=== PATIENT | male | born 1950 | race Caucasian/White ===

== ENCOUNTER 2016-11-30 08:33 | Emergency (ER) | payer MEDICARE ==
[2016-11-30 08:58] VITALS: BP 162/75
--- NOTE | 2016-11-30 09:12 | UC ---
Lower Extremity/Ankle HPI - HPI Summary HPI Summary: Right knee pain with ROM onset yesterday s/p going up stairs, knee"gave way" it now better compared to 5 hours ago. he had reduced ROM but it has completely returned this AM . no previous trauma or knee issues. using a cane to help balance [ End ] - History of Current Complaint Chief Complaint: UCLowerExtremity Stated Complaint: RIGHT KNEE INJURY Time Seen by Provider: 11/30/16 09:01 Hx Obtained From: Patient Onset/Duration: Sudden Onset Severity Initially: Moderate Severity Currently: Severe Aggravating Factor(s): Standing Alleviating Factor(s): Rest Able to Bear Weight: Yes - Risk Factors Gout Risk Factors: Age Over 40 DVT Risk Factors: Negative Septic Arthritis Risk Factor: Negative - Allergies/Home Medications Allergies/Adverse Reactions: Allergies Allergy/AdvReac Type Severity Reaction Status Date / Time No Known Allergies Allergy Verified 11/30/16 08:58 Home Medications: Home Medications Ibuprofen TAB* [Advil TAB*] 400 mg PO Q4H PRN 11/30/16 [History Confirmed ] PMH/Surg Hx/FS Hx/Imm Hx Previously Healthy: Yes Other Endocrine History: unknown - Surgical History Surgical History: Yes Surgery Procedure, Year, and Place: b/l hips with hardware,ages 14 and 44 years - Family History Known Family History: Positive: None - Social History Occupation: Retired Lives: With Family Alcohol Use: Occasionally Substance Use Type: None Smoking Status (MU): Never Smoked Tobacco Review of Systems Constitutional: Negative Skin: Negative Eyes: Negative ENT: Negative Respiratory: Negative Cardiovascular: Negative Gastrointestinal: Negative Genitourinary: Negative Motor: Negative Neurovascular: Negative Musculoskeletal: Arthralgia Neurological: Negative Psychological: Negative All Other Systems Reviewed And Are Negative: Yes Physical Exam Triage Information Reviewed: Yes Appearance: Well-Appearing, No Pain Distress, Well-Nourished Vital Signs: Initial Vital Signs Temp 97.8 F 11/30/16 08:43 Pulse 100 11/30/16 08:43 Resp 24 11/30/16 08:43 BP 162/75 11/30/16 08:43 Vital Signs Reviewed: Yes Eye Exam: Normal ENT Exam: Normal Neck: Positive: 1 Respiratory Exam: Normal Cardiovascular Exam: Normal Musculoskeletal Exam: Normal Musculoskeletal: Positive: Strength Intact, ROM Intact, No Edema, Other: - Neg Homans. No obvious deformity or effusion. Minimal tenderness to palpation posterior fossa in the center / PCL Neurological Exam: Normal Psychological Exam: Normal Skin Exam: Normal Lower Extremity Course/Dx - Course Course Of Treatment: Could be PCL strain. He feels no pain at this time. No effusion . No ballotment. FROM of the knee. No lateral or medial joint line pain to palpation. At this time no trauma. no redness . Monitor with RICE / analgesics and if not improved he will go to ortho and requested Dr Samaniego - Differential Dx/Diagnosis Differential Diagnosis/HQI/PQRI: Sprain, Strain Provider Diagnoses: Right knee pain Discharge - Discharge Plan Condition: Good Disposition: HOME Patient Education Materials: Knee Pain (ED), Hypertension (ED) Referrals: Pratibha Samaniego MD [Medical Doctor] - If Needed (Per your request for this physician) Additional Instructions: Please locate a primary care physician to further evaluate your blood pressure and preventative health care
== END 2016-11-30 09:20 | disposition home or self-care (01) ==
LOC: UCCORT 08:33
DX: M25.561 Pain in right knee (principal)
CPT/HCPCS: 99201; G0463

== ENCOUNTER 2019-01-13 13:48 | Emergency (ER) | payer MEDICARE, BC ==
[2019-01-13 14:30] VITALS: BP 160/74
[2019-01-13] MEDS ORDERED: Albuterol 2.5 MG/3 ML NEB.SOL* (0.083%) INH ONE (14:38)
[2019-01-13] MEDS ORDERED: predniSONE TAB* 20 MG PO ONE (14:38)
--- NOTE | 2019-01-13 14:38 | UC ---
General HPI - HPI Summary HPI Summary: pt is c/o a 3-4 day hx worsening cough, chest congestion, wheezing and ASIF. he denies cp. he denies hx copd and asthma. prior hx bronchitis and this feels similar. also notes R ear is muffled. - History of Current Complaint Chief Complaint: UCRespiratory Stated Complaint: CONGESTION Time Seen by Provider: 01/13/19 14:22 Pain Intensity: 0 - Allergy/Home Medications Allergies/Adverse Reactions: Allergies Allergy/AdvReac Type Severity Reaction Status Date / Time No Known Allergies Allergy Verified 01/13/19 14:15 Home Medications: Home Medications D-Methorphan/PE/Acetaminophen [Vicks Dayquil Liquicaps] 2 each PO Q12H PRN 01/13 [History Confirmed 01/13/19] Dm/Acetaminophen/Doxylamine [Vicks Nyquil Liquicaps] 1 each PO ONCE PRN [History Confirmed 01/13/19] PMH/Surg Hx/FS Hx/Imm Hx Previously Healthy: Yes - Surgical History Surgical History: Yes Surgery Procedure, Year, and Place: b/l hips with hardware,ages 14 and 44 years - Family History Known Family History: Positive: None - Social History Alcohol Use: Occasionally Substance Use Type: None Smoking Status (MU): Never Smoked Tobacco Review of Systems All Other Systems Reviewed And Are Negative: Yes Constitutional: Negative: Fever ENT: Negative: Sore Throat, Ear Ache, Sinus Congestion Respiratory: Positive: Shortness Of Breath, Cough Cardiovascular: Negative: Palpitations, Chest Pain Musculoskeletal: Negative: Edema Physical Exam Triage Information Reviewed: Yes Appearance: Well-Appearing Vital Signs: Initial Vital Signs Temp 97.8 F 01/13/19 14:18 Pulse 88 01/13/19 14:18 Resp 18 01/13/19 14:18 BP 160/74 01/13/19 14:18 Pulse Ox 97 01/13/19 14:18 Vital Signs Reviewed: Yes Eyes: Positive: Conjunctiva Clear ENT: Positive: Pharynx normal, TMs normal. Negative: Nasal congestion, Nasal drainage Neck: Positive: Supple, Nontender, No Lymphadenopathy Respiratory: Positive: No respiratory distress, Decreased breath sounds, Other: - bilateral crackles and wheezing R >L. Cardiovascular: Positive: RRR, No Murmur Abdomen Description: Positive: Nontender Musculoskeletal: Positive: ROM Intact, No Edema Neurological: Positive: Alert Psychological: Positive: Age Appropriate Behavior Skin Exam: Normal Diagnostics - Radiology No standard instances Radiology Interpretation Completed By: Radiologist - IMPRESSION: COPD WITH PATCHY RIGHT PERIHILAR CONSOLIDATION. RECOMMEND FOLLOW-UP UNTIL RESOLUTION TO EXCLUDE UNDERLYING PULMONARY PARENCHYMAL PATHOLOGY. Re-Evaluation - Re-Evaluation First Eval Re-Evaluation Time: 15:17 Change: Improved - much better areation, wheezes and crackles resolved Course/Dx - Differential Dx - Multi-Symptom Differential Diagnoses: Other - non toxic. not hypoxic. pneumonia on cxr. need for close f/u and recheck including BP stressed to pt. - Diagnoses Provider Diagnosis: Pneumonia, Elevated BP without diagnosis of hypertension Discharge - Sign-Out/Discharge Documenting (check all that apply): Patient Departure All imaging exams completed and their final reports reviewed: Yes - Discharge Plan Condition: Stable Disposition: HOME Prescriptions: Albuterol HFA INHALER* [Ventolin HFA Inhaler*] 2 puff INH Q6H #1 mdi DOXYcycline CAP(*) [DOXYcycline 100MG CAP(*)] 100 mg PO BID 10 Days #20 cap predniSONE [Prednisone 20 MG TAB] 40 mg PO DAILY 3 Days #6 tablet Patient Education Materials: Community Acquired Pneumonia (ED), Hypertension ( ED) Referrals: Anil Klein MD [Medical Doctor] - 4 Days Additional Instructions: GO TO THE ER FOR ANY WORSENING - Billing Disposition and Condition Condition: STABLE Disposition: Home
== END 2019-01-13 15:31 | disposition home or self-care (01) ==
LOC: UCCORT 13:48
DX: J18.9 Pneumonia, unspecified organism (principal); R03.0 Elevated blood-pressure reading, without diagnosis of hypertension
CPT/HCPCS: 71046; 99212; G0463; J7512

== ENCOUNTER 2019-04-05 08:48 | Emergency (ER) | payer MEDICARE, BC ==
[2019-04-05 09:05] VITALS: BP 143/74
--- NOTE | 2019-04-05 10:11 | UC ---
Respiratory Complaint HPI - HPI Summary HPI Summary: Pt presents with c/o cough, wheezing, and SOB X 1-2 weeks. pt was idagnosed with pneumonia in December 2018 and given doxycycline and is concerned that it is "back". Pt also has c/o of itchy rash on back and upper chest X 1-2 weeks. Pt states the rash first appeared on his back and is now on his upper chest. Denies contact with known allergen. Pt also c/o left eye white discharge that began over the last two days. Pt reports night seats over last 6 weeks but denies unintentional weight loss. - History of Current Complaint Chief Complaint: UCGeneralIllness Stated Complaint: CONGESTION,COUGH,SKIN COMPLAINT Time Seen by Provider: 04/05/19 09:29 Hx Obtained From: Patient Onset/Duration: Gradual Onset, Lasting Weeks, Still Present Timing: Constant Severity Initially: Mild Severity Currently: Moderate Pain Intensity: 0 Character: Cough: Nonproductive Aggravating Factors: Exertion, Deep Breaths, Recumbent Position Alleviating Factors: Nothing Associated Signs And Symptoms: Positive: Wheezing, URI, Nasal Congestion - Risk Factors Pulmonary Embolism Risk Factors: Negative Cardiac Risk Factors: Negative Pseudomonas Risk Factors: Negative Tuberculosis Risk Factors: Negative - Allergies/Home Medications Allergies/Adverse Reactions: Allergies Allergy/AdvReac Type Severity Reaction Status Date / Time No Known Allergies Allergy Verified 04/05/19 09:06 PMH/Surg Hx/FS Hx/Imm Hx Previously Healthy: Yes - Surgical History Surgical History: Yes Surgery Procedure, Year, and Place: b/l hips with hardware,ages 14 and 44 years - Family History Known Family History: Positive: Cardiac Disease - Social History Occupation: Retired Lives: With Family Alcohol Use: Occasionally Substance Use Type: None Smoking Status (MU): Never Smoked Tobacco Have You Smoked in the Last Year: No - Immunization History Vaccination Up to Date: Yes Review of Systems All Other Systems Reviewed And Are Negative: Yes Constitutional: Positive: Fatigue Skin: Positive: Rash - itchy, back and upper chest Eyes: Positive: Drainage - left, white in color ENT: Positive: Negative Respiratory: Positive: Shortness Of Breath, Cough Cardiovascular: Positive: Negative Gastrointestinal: Positive: Negative Genitourinary: Positive: Negative Motor: Positive: Negative Neurovascular: Positive: Negative Musculoskeletal: Positive: Negative Neurological: Positive: Negative Psychological: Positive: Negative Is Patient Immunocompromised?: No Physical Exam Triage Information Reviewed: Yes Appearance: Well-Appearing Vital Signs: Initial Vital Signs Temp 96.3 F 04/05/19 09:02 Pulse 91 04/05/19 09:02 Resp 16 04/05/19 09:02 BP 143/74 04/05/19 09:02 Pulse Ox 95 04/05/19 09:02 Vital Signs Reviewed: Yes Eye Exam: Normal Eyes: Positive: Conjunctiva Clear ENT Exam: Normal Dental Exam: Normal Neck exam: Normal Respiratory: Positive: Decreased breath sounds - right mid and lower lobes Cardiovascular Exam: Normal Musculoskeletal Exam: Normal Neurological Exam: Normal Psychological Exam: Normal Skin: Positive: Rashes - scattered pustular circular rash on back and upper chest around neck line. Pt denies pain. Diagnostics - Radiology No standard instances Radiology Interpretation Completed By: Radiologist - Client Service Associate: Yobany Valentin Daniel, ([id number]) Herbologist: DOROTA, (NUANCE) Report Date: 04/05/2019 09:38:00 Report Status: Final Start of Report Content ====== Patient Name: BRADLEY MENDES Medical Record#: [id number] Ordering Physician: Shanita Wilkes DISTRESSER Acct.#: [id number] : 1950 Age: 68 Sex: M Location: [facility] Exam Date: 04/05/19937 ADM Status: REG ER Order Information: CHEST PA LAT 2 VWS Accession Number: [id number] CPT: 73567 HISTORY: sob, wheezing COMPARISONS: January 03, 2019 VIEWS: 4: Frontal dual -energy and lateral views of the chest. FINDINGS: CARDIOMEDIASTINAL SILHOUETTE: The cardiomediastinal silhouette is normal. RUFINA: The rufina are normal. PLEURA: The costophrenic angles are sharp. No pleural abnormalities are noted. LUNG PARENCHYMA: There is patchy alveolar opacification of the right infrahilar lung right lower lung near the costophrenic angle wasn't the right middle lobe. This is slightly progressed from the previous examination., ABDOMEN: The upper abdomen is clear. There is no subphrenic gas. BONES AND SOFT TISSUES: No bone or soft tissue abnormalities are noted. OTHER: None. IMPRESSION: PATCHY RIGHT MIDDLE LOBE CONSOLIDATION. RECOMMEND FOLLOW-UP UNTIL RESOLUTION TO EXCLUDE UNDERLYING PULMONARY PARENCHYMAL PATHOLOGY. <Electronically signed by Yobany Valentin MD in OV > 04/05/19 1005 Dictated By: Yobany Valentin MD Dictated Date/Time: 1003 Transcribed Date/Time: 04/05/19 1003 Copy to: CC:Wolf Arroyo MD; Shanita Wilkes DISTRESSER; Anil Klein MD Imaging - [facility] - [place] [facility] [address] [address] ph [phone]) ph ([phone]) ph ([phone]) End of Report Content Respiratory Course/Dx - Course Course Of Treatment: I discussed the xray report with pt, stated that he needed to follow up with PCP. Pt states he has an already scheduled appointment for 04/15/19. Pt was also told to use antihistamine for itchiness with rash and to refrain from using scented products. Pt was also instructed to follow up with eye c/o if no imrpovment. Pt verbalized understanding and agreed to plan of care. - Differential Dx/Diagnosis Differential Diagnosis/HQI/PQRI: Bronchitis, Lower Resp Infection Provider Diagnosis: Pneumonia, Contact dermatitis, Discharge of eye, left Discharge ED - Sign-Out/Discharge Documenting (check all that apply): Patient Departure All imaging exams completed and their final reports reviewed: Yes - Discharge Plan Condition: Stable Disposition: HOME Prescriptions: Albuterol HFA INHALER* [Ventolin HFA Inhaler*] 1 - 2 puff INH Q4H PRN #1 mdi PRN Reason: Sob/Wheezing Azithromycin TAB* [Zithromax TAB (Z-STANLEY) 250 mg #6 tabs] 2 tab PO .TODAY, THEN 1 DAILY #1 stanley predniSONE TAB* [Deltasone 10 MG TAB*] 30 mg PO DAILY #12 tab Patient Education Materials: Contact Dermatitis (ED), Pneumonia (ED) Referrals: Anil Klein MD [Primary Care Provider] - 04/15/19 - Billing Disposition and Condition Condition: STABLE Disposition: Home - Attestation Statements Provider Attestation: I was available for consult. This patient was seen by the BRI. The patient was not presented to , seen by or examined by co -Wolf Arroyo MD
== END 2019-04-05 10:29 | disposition home or self-care (01) ==
LOC: UCCORT 08:48
DX: J18.9 Pneumonia, unspecified organism (principal); L25.9 Unspecified contact dermatitis, unspecified cause; H57.89 Other specified disorders of eye and adnexa; R21 Rash and other nonspecific skin eruption
CPT/HCPCS: 71046; 99212; G0463

== ENCOUNTER → 2019-07-02 09:51 | Day surgery (SDC) | payer MEDICARE, BC ==
[~2019-07-02 09:51] MED LIST: Heparin 2 UNITS/ML IVPREMIX* 2,000 ML IV ONE; Heparin(*) 1000 UNIT/ML 10 ML VIAL CATH LAB IV ONE; Iohexol 350 (CONTRAST) 200 ML MDV IV ONE; Lidocaine 1% INJ* 10 MG/ML 30 ML SDV ONE; Midazolam* 1 MG/ML 5 ML VIAL (5 MG) ONE; NS 0.9% 1000 ML** 1,000 ML IV SCH; VERAPAMIL 2.5 MG/ML 2 ML VIAL ** 5 mg/2 ml ONE; fentaNYL* 50 MCG/ML 2 ML VIAL (100 MCG VIAL) ONE; nitroGLYCERIN DRIP* 25,000 MCG/250 ML BTL ONE
[2019-07-02 13:53] VITALS: BP 159/85
--- NOTE | 2019-07-03 13:37 | CATH ---
CC: LEELEE Alvarez; Dr. Zamorano * CATH REPORT: DATE OF CATH: 07/02/19 - [facility] CATH PRIMARY CARE PHYSICIAN: LEELEE Alvarez HYDRAULIC BILLET MAKER: Dr. Zamorano. PROCEDURES: Right radial artery access, bilateral selective coronary cineangiography, right heart catheterization. HISTORY: A 68-year-old male with symptomatic severe aortic stenosis by noninvasive testing, preserved LV systolic function. On exam, he has evidence of right heart failure. PROCEDURE ACCESS: Right radial artery sheath 6-F Slender, right antecubital vein 5- Maldivian. CATHETERS: 5-Maldivian [place] Otilio, 5FL4, 6FMP. FMP was used to access the anterior right coronary takeoff. ACCOUNT RECEIVABLE ASSOCIATE MEDICATIONS: 1. Subcu lidocaine. 2. IV Versed. 3. IV fentanyl. 4. Heparin 3000 units. 5. Verapamil 3 mg. 6. Nitroglycerin 300 mcg IA. HEMODYNAMICS: Resting pressures RA mean 12, RV 59/12-14, wedge mean 23, PA 53/ 21, mean 35. Initial BP was 162/85, final BP 147/83. Angiography: There is a heavy calcification of the aortic leaflets as well as the mitral annulus. RCA: The RCA is large, with an anterior takeoff, it has a proximal eccentric 30 % stenosis, distally it supplies moderate PDA and two posterolaterals. The ostium of the RCA has mild, less than 40% stenosis. Left Main: The left main is short, has mild proximal taper without significant stenosis. LAD: The LAD is large, extends past the apex. There is a moderate first diagonal, a smaller second diagonal. The LAD has no significant stenosis. Circumflex: The circumflex is not dominant, is large, supplies a large marginal and ends with a smaller bifurcated posterolateral. The circumflex has no significant stenosis. Incidentally noted is calcification of the ascending aorta. CONCLUSION: 1. No significant obstructive coronary artery disease. 2. Moderately severe pulmonary venous hypertension. He was started on Lasix 20 mg p.o. every other day. 3. Successful right radial artery access. [id number]/[facility] #: [id number] MTDD
== END | disposition home or self-care (01) ==
LOC: CHICATH 09:51
PROVIDERS: ATTEND Internal Medicine Cardiovascular Disease
DX: I35.0 Nonrheumatic aortic (valve) stenosis (principal); R06.02 Shortness of breath; R07.89 Other chest pain; I27.20 Pulmonary hypertension, unspecified; I50.810 Right heart failure, unspecified; D53.9 Nutritional anemia, unspecified; E66.01 Morbid (severe) obesity due to excess calories; Z96.642 Presence of left artificial hip joint; Z85.71 Personal history of Hodgkin lymphoma; I45.10 Unspecified right bundle-branch block; I77.819 Aortic ectasia, unspecified site; R03.0 Elevated blood-pressure reading, without diagnosis of hypertension
CPT/HCPCS: 93456; 99156; 99157; C1887; J1644; J2250; J3010

== ENCOUNTER 2020-06-24 10:25 | Inpatient (IN) ==
[2020-06-24] MEDS ORDERED: Furosemide 40 mg/4 ml IV VIAL IV SLOW PU ONE (10:58)
[2020-06-24 11:51] LABS: ABS Basophils 0.1 10^3/ul (0-0.2); ABS Eosinophils 0.2 10^3/ul (0-0.6); ABS Lymphocytes 1.3 10^3/ul (1.0-4.8); ABS Monocytes 1.1 10^3/ul (0-0.8); ABS Neutrophils 5.4 10^3/ul (1.5-7.7); Eosinophil % 2.5 %; Hematocrit 33 % (42-52); Hemoglobin 11.3 g/dL (14.0-18.0); Lymphocyte % 16.2 %; Mean Corpuscular HGB Conc 35 g/dL (31-36); Mean Corpuscular Hemoglobin 35 pg (27-31); Mean Corpuscular Volume 102 fL (80-94); Mean Platelet Volume 8.6 fL (7.4-10.4); Nucleated Red Blood Cells % 0.3; Platelet Count 217 10^3/uL (150-450); Red Blood Count 3.18 10^6 /uL (4.18-5.48); Red Cell Distribution Width 17 % (10-15); White Blood Count 8.2 10^3/uL (3.5-10.8)
[2020-06-24 12:14] LABS: ALT 34 U/L (7-52); AST 21 U/L (13-39); Albumin 3.8 g/dL (3.2-5.2); Albumin/Globulin Ratio 1.6 (1-3); Alkaline Phosphatase 66 U/L (34-104); Anion Gap 6 mmol/L (2-11); Blood Urea Nitrogen 27 mg/dL (6-24); CO2 Carbon Dioxide 29 mmol/L (22-32); Calcium 9.6 mg/dL (8.6-10.3); Chloride 104 mmol/L (101-111); EGFR African American 100.9 (>60); EGFR Non-African American 83.4 (>60); Globulin 2.4 g/dL (2-4); Glucose 105 mg/dL (70-100); Potassium 4.5 mmol/L (3.5-5.0); Sodium 139 mmol/L (135-145); Total Protein 6.2 g/dL (6.4-8.9)
[2020-06-24 12:15] LABS: Troponin I 0.03 ng/mL (<0.03)
[2020-06-24 12:55] LABS: INR 1.19 (0.82-1.09)
[2020-06-24 12:59] LABS: TSH Ultra Thyroid Stim Horm 1.84 mcIU/mL (0.34-5.60)
[2020-06-24] MEDS ORDERED: Perflutren Lipid Microsphere 3 ML VIAL ONE (14:32)
[2020-06-24] MEDS: Heparin 5000 UNITS/ML 1 mL VIAL SUBCUT SCH ×2 (16:22→20:32)
[2020-06-24 16:40] LABS: INR 1.22 (0.82-1.09)
[2020-06-24 16:59] LABS: Troponin I 0.03 ng/mL (<0.03)
[2020-06-24] MEDS ORDERED: Furosemide 40 mg/4 ml IV VIAL IV ONE (17:28)
[2020-06-25 05:11] LABS: BUN/Creatinine Ratio 27.4 (8-20); Calcium 9.4 mg/dL (8.6-10.3); EGFR African American 109.3 (>60); EGFR Non-African American 90.3 (>60); Magnesium 2.1 mg/dL (1.9-2.7); Potassium 4.1 mmol/L (3.5-5.0)
[2020-06-25] MEDS: Heparin 5000 UNITS/ML 1 mL VIAL SUBCUT SCH ×3 (05:35→13:43)
[2020-06-25] MEDS ORDERED: Aspirin EC 81 mg TAB.EC (enteric coated) PO SCH (09:00)
[2020-06-25] MEDS ORDERED: Furosemide 40 mg/4 ml IV VIAL IV ONE (09:34)
[2020-06-25 10:25] LABS: ABS Basophils 0.1 10^3/ul (0-0.2); ABS Eosinophils 0.3 10^3/ul (0-0.6); ABS Lymphocytes 1.2 10^3/ul (1.0-4.8); ABS Monocytes 0.6 10^3/ul (0-0.8); ABS Neutrophils 3.7 10^3/ul (1.5-7.7); Eosinophil % 4.3 %; Hematocrit 33 % (42-52); Hemoglobin 11.5 g/dL (14.0-18.0); Lymphocyte % 20.8 %; Mean Corpuscular HGB Conc 35 g/dL (31-36); Mean Corpuscular Hemoglobin 36 pg (27-31); Mean Corpuscular Volume 102 fL (80-94); Mean Platelet Volume 8.4 fL (7.4-10.4); Nucleated Red Blood Cells % 0.4; Platelet Count 214 10^3/uL (150-450); Red Blood Count 3.23 10^6 /uL (4.18-5.48); Red Cell Distribution Width 17 % (10-15); White Blood Count 5.9 10^3/uL (3.5-10.8)
[2020-06-25 15:09] VITALS: BP 140/52
== END 2020-06-25 14:30 | disposition home or self-care (01) | DRG 292 ==
LOC: ED 10:25 → MEDTELE 10:25 → OBSVTOIN 13:20 → MEDTELE 15:53
PROVIDERS: ADMIT Internal Medicine; ATTEND Internal Medicine

== ENCOUNTER 2022-02-21 10:48 | Inpatient (IN) ==
[2022-02-21 11:53] LABS: ABS Basophils 0.1 10^3/ul (0-0.2); ABS Lymphocytes 0.2 10^3/ul (1.0-4.8); ABS Monocytes 0.4 10^3/ul (0-0.8); ABS Neutrophils 15.4 10^3/ul (1.5-7.7); Hematocrit 32 % (42-52); Hemoglobin 10.7 g/dL (14.0-18.0); Lymphocyte % 1.4 %; Mean Corpuscular HGB Conc 33 g/dL (31-36); Mean Corpuscular Hemoglobin 35 pg (27-31); Mean Corpuscular Volume 106 fL (80-94); Mean Platelet Volume 9.1 fL (7.4-10.4); Platelet Count 134 10^3/uL (150-450); Red Blood Count 3.03 10^6 /uL (4.18-5.48); Red Cell Distribution Width 18 % (10-15); White Blood Count 16.2 10^3/uL (3.5-10.8)
[2022-02-21] MEDS ORDERED: NS 0.9% 1000 ml BAG 1,000 ML IV ONE ×2 (12:07→12:08)
[2022-02-21] MEDS ORDERED: cefTRIAXone 1 gm/50 mL D5W 1 GM/50 ML BAG IV ONE ×2 (12:11→21:22)
[2022-02-21 12:13] LABS: High Sens Troponin Baseline 154 pg/mL (<20)
[2022-02-21 12:38] LABS: ALT 26 U/L (7-52); AST 40 U/L (13-39); Albumin 3.9 g/dL (3.2-5.2); Albumin/Globulin Ratio 1.7 (1-3); Alkaline Phosphatase 54 U/L (35-149); Anion Gap 11 mmol/L (2-11); Blood Urea Nitrogen 46 mg/dL (6-24); CO2 Carbon Dioxide 23 mmol/L (22-32); Calcium 8.6 mg/dL (8.6-10.3); Chloride 100 mmol/L (101-111); Globulin 2.3 g/dL (2-4); Glucose 154 mg/dL (70-100); Lipase < 10 U/L (11.0-82.0); Magnesium 2.1 mg/dL (1.9-2.7); Potassium 3.9 mmol/L (3.5-5.0); Sodium 134 mmol/L (135-145); Total Protein 6.2 g/dL (6.4-8.9)
[2022-02-21 12:43] LABS: CRP High Sensitivity 182.84 mg/L (<2.00)
[2022-02-21 13:03] LABS: Urine Appearance Cloudy; Urine Bilirubin Negative (Negative); Urine Blood 2+ (Negative); Urine Color Amber; Urine Glucose 3+(>=500 mg/dL) (Negative); Urine Ketones Negative (Negative); Urine Nitrite Negative (Negative); Urine Protein 2+(100 mg/dL) (Negative); Urine Specific Gravity 1.018 (1.002-1.030); Urine Urobilinogen Negative (Negative)
[2022-02-21 13:20] LABS: Urine Bacteria Absent (Absent); Urine Red Blood Cell 2+(6-10/hpf) (Absent); Urine Squamous Epithelial Cell Present (Absent); Urine White Blood Cell 2+(11-20/hpf) (Absent)
[2022-02-21 13:22] LABS: High Sensitivity Troponin 1 Hr 139 pg/mL (<20)
[2022-02-21 13:23] LABS: Erythrocyte Sed Rate 70 mm/Hr (0-19)
[2022-02-21] MEDS ORDERED: Furosemide 20 mg/2 ml IV VIAL IV SLOW PU ONE (13:40)
[2022-02-21 14:44] LABS: PCO2 Arterial 25 mmHg (35-45); PO2 Arterial 74 mmHg (80-100)
[2022-02-21] MEDS ORDERED: Lactated Ringers 500 ml BAG 500 ML IV ONE (17:43)
[2022-02-21] MEDS ORDERED: Dextrose 50% Syringe 50 ml 25 GM/50 ML SYRINGE IV PUSH PRN (18:24)
[2022-02-21] MEDS: Norepinephrine 16MCG/ML BAG NS 4,000 MCG/250 ML BAG IV SCH (19:34)
[2022-02-21 19:55] LABS: Phosphorus 3.4 mg/dL (2.5-5.0)
[2022-02-21] MEDS ORDERED: Norepinephrine 16MCG/ML BAG NS 4,000 MCG/250 ML BAG IV SCH ×3 (20:00)
[2022-02-21] MEDS: Enoxaparin 40 MG/0.4 ML SYR SUBCUT SCH (21:15)
[2022-02-21] MEDS: NS 0.9% IVPB SCH (23:38)
[2022-02-21] MEDS: GENTAMICIN ADULT IVPB SCH (23:38)
[2022-02-22 04:37] LABS: Hematocrit 25 % (42-52); Mean Corpuscular HGB Conc 33 g/dL (31-36); Mean Corpuscular Hemoglobin 35 pg (27-31); Mean Corpuscular Volume 106 fL (80-94); Mean Platelet Volume 8.1 fL (7.4-10.4); Platelet Count 77 10^3/uL (150-450); Red Cell Distribution Width 18 % (10-15); White Blood Count 7.2 10^3/uL (3.5-10.8)
[2022-02-22 05:05] LABS: ABS Lymphocytes 0.4 10^3/ul (1.0-4.8); ABS Monocytes 0.6 10^3/ul (0-0.8); ABS Neutrophils 6.1 10^3/ul (1.5-7.7); Lymphocyte % 5.6 %; Macrocytosis 1+
[2022-02-22 05:19] LABS: Albumin 3.6 g/dL (3.2-5.2); Albumin/Globulin Ratio 1.4 (1-3); Calcium 8.2 mg/dL (8.6-10.3); Globulin 2.5 g/dL (2-4); Magnesium 2.3 mg/dL (1.9-2.7); Phosphorus 3.8 mg/dL (2.5-5.0); Potassium 3.8 mmol/L (3.5-5.0); Total Bilirubin 0.7 mg/dL (0.2-1.0); Total Protein 6.1 g/dL (6.4-8.9); eGFR CKD-EPI 52.5 (>60)
[2022-02-22] MEDS: Norepinephrine 16MCG/ML BAG NS 4,000 MCG/250 ML BAG IV SCH (05:45)
[2022-02-22] MEDS: NS 0.9% IVPB SCH ×3 (07:22→21:28)
[2022-02-22] MEDS: GENTAMICIN ADULT IVPB SCH ×3 (07:22→21:28)
[2022-02-22] MEDS ORDERED: Naloxone 0.4 mg VIAL 0.4 mg/ml 1 ml VIAL ONE (08:53)
[2022-02-22] MEDS ORDERED: fentaNYL 100 mcg/2 ml 50 MCG/ML VIAL ONE (08:53)
[2022-02-22] MEDS ORDERED: Flumazenil 0.5 mg/5 ml 0.1 MG/ML 5 ml VIAL ONE (08:53)
[2022-02-22] MEDS ORDERED: Midazolam 5 mg/5 ml VIAL 1 mg/ml 5 ml VIAL (5 mg) ONE (08:58)
[2022-02-22] MEDS: Aspirin EC 81 mg TAB.EC (enteric coated) PO SCH (11:08)
[2022-02-22 12:22] LABS: Hematocrit 25 % (42-52); Hemoglobin 8.4 g/dL (14.0-18.0); Mean Corpuscular HGB Conc 33 g/dL (31-36); Mean Corpuscular Hemoglobin 35 pg (27-31); Mean Corpuscular Volume 106 fL (80-94); Red Blood Count 2.37 10^6 /uL (4.18-5.48); Red Cell Distribution Width 18 % (10-15); White Blood Count 5.5 10^3/uL (3.5-10.8)
[2022-02-22] MEDS: cefTRIAXone 2 gm/50 mL D5W 2 GM/50 ML BAG IV SCH (12:24)
[2022-02-22 12:36] LABS: Mean Platelet Volume 8.5 fL (7.4-10.4); Platelet Count 85 10^3/uL (150-450)
[2022-02-22] MEDS ORDERED: cefTRIAXone 2 gm/50 mL D5W 2 GM/50 ML BAG IV SCH (13:00)
[2022-02-22] MEDS ORDERED: cefTRIAXone 1 gm/50 mL D5W 1 GM/50 ML BAG IV SCH (13:00)
[2022-02-22] MEDS: Enoxaparin 40 MG/0.4 ML SYR SUBCUT SCH (21:29)
[2022-02-23] MEDS: NS 0.9% IVPB SCH (04:59)
[2022-02-23] MEDS: GENTAMICIN ADULT IVPB SCH (04:59)
[2022-02-23 05:00] LABS: Hematocrit 29 % (42-52); Hemoglobin 9.7 g/dL (14.0-18.0); Mean Corpuscular HGB Conc 34 g/dL (31-36); Mean Corpuscular Hemoglobin 35 pg (27-31); Mean Corpuscular Volume 104 fL (80-94); Mean Platelet Volume 9.4 fL (7.4-10.4); Platelet Count 107 10^3/uL (150-450); Red Blood Count 2.76 10^6 /uL (4.18-5.48); Red Cell Distribution Width 18 % (10-15); White Blood Count 5.5 10^3/uL (3.5-10.8)
[2022-02-23 05:50] LABS: Magnesium 2.2 mg/dL (1.9-2.7); Potassium 3.5 mmol/L (3.5-5.0); eGFR CKD-EPI 62.4 (>60)
[2022-02-23] MEDS ORDERED: Gentamicin PEAK LEVEL FOLLOW UP ONE (07:00)
[2022-02-23] MEDS: Aspirin EC 81 mg TAB.EC (enteric coated) PO SCH (08:37)
[2022-02-23] MEDS ORDERED: Gentamicin ADULT per pharmacy 1 NOTE MISC FOLLOW UP PRN (10:35)
[2022-02-23] MEDS: cefTRIAXone 2 gm/50 mL D5W 2 GM/50 ML BAG IV SCH (12:08)
[2022-02-23] MEDS ORDERED: Potassium Chlor 20 meq TAB.ER PO ONE ×3 (15:21→20:00)
[2022-02-23 17:05] VITALS: BP 96/47
== END 2022-02-23 18:10 | disposition short-term general hospital (02) | DRG 314 ==
LOC: EDHOLD 10:48 → ED 10:48 → EDHOLD 15:39 → ICU 16:11
PROVIDERS: ADMIT Internal Medicine Critical Care Medicine; ATTEND Internal Medicine Critical Care Medicine